=== PATIENT | female | born 1955 | race Caucasian/White ===

== ENCOUNTER 2025-04-28 10:20 | Day surgery (SDC) | payer MEDICARE, MEDICAID ==
[2025-04-24 09:44] LABS: MEAN PLATELET VOLUME 7.7 FL (7.4-10.4); RED CELL DISTRIBUTION WIDTH 15.4 % (11.5-14.5)
[2025-04-24 09:57] LABS: APTT 27 SECONDS (22-32); INR 1.0 INR
[2025-04-24 09:59] LABS: CHOL/HDL RATIO 2.7 (0.00-4.99); CREATININE 1.72 MG/DL (0.40-0.90); LDL CHOLESTEROL 41 MG/DL (50-100); TOTAL CARBON DIOXIDE 21.0 MMOL/L (24-32); eGFR 29 ML/MIN
[~2025-04-28] VITALS: Ht 167.6 cm; Wt 100.4 kg
[2025-04-28] VITALS (10 sets, daily range): BP systolic 98–139; BP diastolic 53–73; PULSE 66–74; RESP 12–20; TEMP 98.2; O2SAT 94–99
--- NOTE | 2025-04-28 10:51 | ELECTROCARDIOGRAPH REPORT ---
[facility] Test Date: 2025-04-28 Test Time: 10:48:44 Pat Name: PAULINE SUNSHINE Department: [facility] Patient ID: [facility]-[id number] Room: Gender: F Director Of Orthopedics: ALIREZA : 1955 Requested By: YOMI GALVAN Order Number: [id number] Reading MD: Dr. 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 BUDDY Hernandez Please click the below link to view image of tracing.
[2025-04-28] MEDS ORDERED: MAGN300T (11:04)
[2025-04-28] MEDS ORDERED: FLUT100B3 INH (11:04)
[2025-04-28] MEDS ORDERED: ALBU18HF2 (11:04)
[2025-04-28] MEDS ORDERED: SIMV80TA89 PO (11:04)
[2025-04-28] MEDS ORDERED: [UNRECOGNIZED DRUG - OTHER] (11:04)
[2025-04-28] MEDS ORDERED: LANTUS SQ (11:04)
[2025-04-28] MEDS ORDERED: SERT-433 PO (11:04)
[2025-04-28] MEDS ORDERED: VIT1CAPS46 PO (11:04)
[2025-04-28] MEDS ORDERED: LEVO175T7 PO (11:04)
[2025-04-28] MEDS ORDERED: ICOS1CAP2 (11:04)
[2025-04-28] MEDS ORDERED: SODI650T29 PO (11:04)
[2025-04-28] MEDS ORDERED: SEMA0.258 (11:04)
[2025-04-28] MEDS ORDERED: ASCO-371 PO (11:04)
[2025-04-28] MEDS ORDERED: LOPE2CAP PO (11:04)
[2025-04-28] MEDS ORDERED: CHOL500050 PO (11:04)
[2025-04-28] MEDS ORDERED: FERR325T28 PO (11:04)
[2025-04-28] MEDS ORDERED: INSU100I61 SQ (11:04)
[2025-04-28] MEDS ORDERED: [UNRECOGNIZED DRUG - OTHER] (11:04)
[2025-04-28] MEDS ORDERED: fentaNYL/PF 50MCG/1 ML 2ML syringe ONE (12:22)
[2025-04-28] MEDS ORDERED: verapamil 2.5 mg/ml inj IV ONE (12:22)
[2025-04-28] MEDS ORDERED: midazolam 1 mg/ML 2ml injection ONE (12:22)
[2025-04-28] MEDS ORDERED: LIDOcaine 1% (10mg/ml) 2ml vial ONE (12:22)
[2025-04-28] MEDS ORDERED: heparin 1,000unit/ml 10ml vial 10 ML ONE (12:23)
[2025-04-28] MEDS ORDERED: nitroGLYCERIN 500mcg/5mL D5W 5 ML IV ONE (12:27)
[2025-04-28] MEDS ORDERED: nitroGLYCERIN-Tridil 50MG/D5W 250 ML IV ONE (12:59)
[2025-04-28] MEDS ORDERED: ondansetron/PF 4mg/2ml inj IV PRN (14:00)
[2025-04-28] MEDS ORDERED: OXAZEpam 15mg capsule PO PRN (14:05)
[2025-04-29 08:45] LABS: ISTAT HGB MIX 11.9 g/dl (12.0-16.0); ISTAT Hct MIX 35 %PCV (35-45); ISTAT O2 SATURATION MIX VENOUS 66 % (60-80); ISTAT SOURCE VEN
--- NOTE | 2025-05-16 22:11 | CARDIOLOGY REPORT ---
DATE OF SERVICE: 04/28/2025 DICTATING PHYSICIAN: Hiwot Madrigal MD CARDIAC CATHETERIZATION REPORT DATE OF STUDY: 04/28/2025 PROCEDURES: 1. Right heart catheterization. 2. Selective coronary angiography. 3. Conscious sedation, monitoring time for 15 minutes. INDICATION: Aortic stenosis. PHYSICIAN: Hiwot Madrigal MD DESCRIPTION OF PROCEDURE: After informed consent was obtained, the patient was brought to the lab where she was prepped and draped in the usual sterile fashion. A 6-[place] sheath was inserted into the right radial artery and a 6-[place] sheath into the right brachial vein. Thereafter, using a Silex Cisco catheter, the catheter was floated under fluoroscopic guidance into the outflow tract and into the wedge position where pulmonary capillary wedge pressure and right-sided pressures were obtained. The Silex Cisco catheter was then removed. Using a TIG catheter, the catheter was advanced under fluoroscopic guidance into the ascending aorta. Wire was removed. Catheter was manipulated to engage the coronary arteries and selective coronary angiography performed. HEMODYNAMICS: For the patient's hemodynamics, please refer to the event log. Left ventriculography was not performed. The patient's pulmonary capillary wedge pressure was 9/10 with a mean of 5 mmHg. Pulmonary arterial pressure was 22/13 with a mean of 13 mmHg. Right ventricular pressure was 26/0 with a mean of 6 mmHg. Right atrial pressure was 11/7 with a mean of 6 mmHg. AO saturation was 95%. PA saturation was 66%. Cardiac output by Jem was 4.09 liters per minute. FINDINGS: The left main coronary artery is a short caliber vessel, free of significant disease. The left anterior descending coronary artery is a medium caliber vessel with a 40% to 50% mid vessel stenosis. Mild diffuse distal disease is noted. The circumflex coronary artery is a normal caliber vessel free of significant disease. The right coronary artery is also a normal caliber vessel with mild luminal irregularities. IMPRESSION: 1. 40% to 50% stenosis of the mid LAD. 2. Normal right-sided pressures. The patient's mean pulmonary capillary wedge pressure was 5 mmHg and the mean PA pressure was 13 mmHg. RECOMMENDATION: Aortic valve replacement. Hiwot Madrigal MD TID: [id number] RECEIPT: [id number] DARNELL/SHOBHA
== END 2025-04-28 16:20 | disposition home or self-care (01) ==
LOC: SSTAY O 10:20
PROVIDERS: ATTEND Student in an Organized Health Care Education/Training Program
DX: I35.0 Nonrheumatic aortic (valve) stenosis (principal); I25.10 Atherosclerotic heart disease of native coronary artery without angina pectoris; R94.31 Abnormal electrocardiogram [ECG] [EKG]; I44.4 Left anterior fascicular block; I25.2 Old myocardial infarction; I12.9 Hypertensive chronic kidney disease with stage 1 through stage 4 chronic kidney disease, or unspecified chronic kidney disease; E11.22 Type 2 diabetes mellitus with diabetic chronic kidney disease; N18.9 Chronic kidney disease, unspecified; E78.00 Pure hypercholesterolemia, unspecified; J45.909 Unspecified asthma, uncomplicated; Z79.4 Long term (current) use of insulin; Z79.890 Hormone replacement therapy; Z79.899 Other long term (current) drug therapy; Z88.0 Allergy status to penicillin
CPT/HCPCS: 36415; 80048; 80061; 82803; 83695; 85014; 85025; 85610; 85730; 93005; 93456; 99152; A6258; A6402; C1751; C1894; J1644; J2003; J2250; J3010; J3490; J7030; Q0163; Q9967; Z7610; 93460; 99153

== ENCOUNTER 2025-07-07 10:27 | Outpatient (CLI) | payer MEDICARE, MEDICAID ==
[~2025-07-07 10:27] MED LIST: ALBU18HF2; ASCO-371 PO; CHOL500050 PO; FERR325T28 PO; FLUT100B3 INH; ICOS1CAP2; INSU100I61 SQ; IODIXANOL 320 MG/ML INFUS..BTL 100ML IV ONE; LANTUS SQ; LEVO175T7 PO; LOPE2CAP PO; MAGN300T; SEMA0.258; SERT-433 PO; SIMV80TA89 PO; SODI650T29 PO; VIT1CAPS46 PO; [UNRECOGNIZED DRUG - OTHER]; [UNRECOGNIZED DRUG - OTHER]
[2025-07-07 10:59] LABS: MEAN PLATELET VOLUME 7.2 FL (7.4-10.4); RED CELL DISTRIBUTION WIDTH 15.0 % (11.5-14.5)
[2025-07-07 11:09] LABS: APTT 25 SECONDS (22-32); INR 1.0 INR
[2025-07-07 11:17] LABS: CREATININE 1.46 MG/DL (0.40-0.90); PRO BRAIN NATRIURETIC PEPTIDE 320 PG/ML (0-125); TOTAL CARBON DIOXIDE 21.5 MMOL/L (24-32); eGFR 36 ML/MIN
--- NOTE | 2025-07-07 11:25 | RADIOLOGY REPORT ---
CHEST RADIOGRAPH INDICATION: TAVR SOB TECHNIQUE: Single frontal view of the chest was obtained COMPARISON: None IMPRESSION: Heart appears normal in size. No sizable effusion or pneumothorax. Extensive thoracic spine hardware. The lungs appear clear. HS:Y
--- NOTE | 2025-07-08 14:48 | RADIOLOGY REPORT ---
EXAM: CT CTA TAVR CLINICAL HISTORY: AV STENOSIS,SOB,CAROTID STENOSIS TECHNIQUE: Arterial phase spiral acquisitions obtained through the chest, abdomen, and pelvis. Multiplanar reconstructions were generated. Using automated software tools and 3-D reconstructions, imaging analysis of the aortic valve was performed. Dose reduction effected using automated exposure control and iterative reconstruction technique. 2-D and 3-D reformations are generated at a separate independent workstation. All CT scans at this facility are performed using dose modulation techniques as appropriate to a performed exam including the following: automated exposure control with adjustment of the mA and/or kV according to patient size. RADIATION DOSE: CTDI vol: 66 mGy DLP: 2587 mGy-cm Dose information generated by the CT scanner is available in PACS. IV Contrast: 80 cc Visipaque 320 The amount of contrast was reduced due to low eGFR. COMPARISON: None FINDINGS: Aortic valve annulus diameter: 27.8 x 23.2 mm. Aortic valve area: 4.64 cm2. Perimeter: 77.9 mm. Diameter through left coronary sinus: 32.0 mm. Diameter through right coronary sinus: 30.6 mm. Diameter through the noncoronary sinus: 31.7 mm. Diameter at the sinotubular junction: 27.2 mm. Distance from the right coronary sinus to right coronary orifice: 19.4 mm. Distance from left coronary sinus to left coronary orifice: 14.3 mm. Diameter of ascending aorta: 33.9 mm. Diameter of abdominal aorta: 15.6 mm. Diameter of the right common iliac artery: 10.0 mm. Diameter of the right external iliac artery: 8.51 mm. Diameter of the right common femoral artery: 10.2 mm. Diameter of left common iliac artery: 10.7 mm. Diameter of the left external iliac artery: 7.93 mm. Diameter of the left common femoral artery: 8.75 mm. Optimal coplanar projections: 3 cusp view- JAPANESE 13, CAU 3 Anterior view -ANGELES 0, CAU 21 No-PIN PUSHER-CAU view -JAPANESE 15, CAU 0 Other findings: Chest: Evaluation of the chest is degraded by metallic streak artifact from thoracic spine fixation hardware. There is a 3 mm calcified granuloma at the apex of the left upper lobe consistent with prior granulomatous disease. There is minimal platelike atelectasis in bilateral lower lobes of the lungs. There is no bronchiectasis or honeycombing. There is bronchial wall thickening consistent with bronchitis. No significant noncalcified pulmonary nodule or mass is identified. There is no pleural effusion. There is no pneumothorax. There is no pericardial effusion. There are aortic valvular calcifications there is no thoracic aortic aneurysm or dissection. No lymphadenopathy is identified in the chest by size criteria. Spleen: Unremarkable. Liver: The liver is within normal limits for size and contour. Gallbladder/bile ducts: The gallbladder is surgically absent. There is no intrahepatic biliary dilation. Pancreas: Unremarkable. Adrenal glands: Unremarkable. Kidneys and ureters: Symmetric enhancement. No hydronephrosis. Urinary bladder: Decompressed and not well evaluated. Reproductive structures: The uterus is absent. The ovaries are not seen and are also likely absent Peritoneum/gastrointestinal: Portions of the right and left abdomen are out of the field of view. There is scattered soft tissue nodularity within the omentum measuring up to 0.8 cm. There is an ellipsoid solid lesion along the peritoneal lining in the left upper quadrant measuring approximately 1.3 x 2.5 cm. There is another solid lesion along the peritoneal lining in the right lower quadrant measuring approximately 2.5 x 3.1 cm. 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 Is moderate sigmoid diverticulosis without evidence of diverticulitis. There is a stool ball in the rectum. There is no distention of the small bowel to suggest obstruction. There is no ab dominal aortic aneurysm. There is parastomal herniation of fat and a nonobstructed small bowel loop in the right lower quadrant. No free fluid is identified in the abdomen or pelvis. Lymph nodes: No pathologic lymphadenopathy is identified in the retroperitoneum or pelvis. Bones: There is transpedicular fusion T2-T8. There is bulky, confluence ventral osteophytosis throughout the thoracic spine, likely limiting mobility. No acute osseous abnormality is identified. IMPRESSION: TAVR MEASUREMENTS ABOVE. Scattered soft tissue nodularity in the omentum measuring up to 0.8 cm. There are 2 ellipsoid, solid lesions along the peritoneal lining in the left upper quadrant and right lower quadrant measuring 2.5 cm and 3.1 cm respectively. Correlate clinically for history of prior abdominal malignancy. Comparison with prior studies is recommended to rule out recurrent /metastatic disease.
== END 2025-07-07 23:59 | disposition home or self-care (01) ==
LOC: RAD 10:27
PROVIDERS: ATTEND Internal Medicine Cardiovascular Disease
DX: I35.0 Nonrheumatic aortic (valve) stenosis (principal); R06.02 Shortness of breath; I65.29 Occlusion and stenosis of unspecified carotid artery; Z90.49 Acquired absence of other specified parts of digestive tract; J84.10 Pulmonary fibrosis, unspecified; L98.8 Other specified disorders of the skin and subcutaneous tissue
CPT/HCPCS: 36415; 71046; 71275; 74174; 75572; 80053; 83880; 85025; 85610; 85730; Q9967